=== PATIENT | female | born 1945 | race Two or more races ===

== ENCOUNTER 2023-04-04 03:01 | Inpatient (IN) | payer MEDICARE, BC ==
[~2023-04-04] VITALS: Ht 160 cm; Wt 63.5 kg
[2023-04-04] VITALS (15 sets, daily range): BP systolic 111–126; BP diastolic 67–80; TEMP 95–98.6; O2SAT 95–100
[2023-04-04] MEDS ORDERED: IBUPROFEN 400 MG TABLET ONE (03:22)
[2023-04-04] MEDS ORDERED: IBUPROFEN 400 MG TABLET PO ONE (03:30)
[2023-04-04] MEDS ORDERED: HYDROCODONE/APAP 5/325MG TABLET ONE ×2 (04:19→09:07)
[2023-04-04] MEDS ORDERED: HYDR-3980 PO (04:25)
[2023-04-04] MEDS ORDERED: HYDROCODONE/APAP 5/325MG TABLET PO ONE ×2 (04:30→09:30)
[2023-04-04] MEDS ORDERED: ONDANSETRON 4 MG TAB.RAPDIS ONE (05:23)
[2023-04-04] MEDS ORDERED: ONDANSETRON HCL/PF 4 MG/2 ML VIAL IVP ONE (05:30)
[2023-04-04] MEDS ORDERED: ONDANSETRON 4 MG TAB.RAPDIS SL ONE (05:30)
[2023-04-04 06:03] LABS: BASOPHILS % (AUTO) 0.1 % (0.0-2.0); HEMATOCRIT 39 % (33-45); HEMOGLOBIN 12.7 g/dL (11.5-14.8); LYMPHOCYTES # (AUTO) 0.3 K/uL (0.8-4.8); LYMPHOCYTES % (AUTO) 1.9 % (20.0-44.0); MEAN CORPUSCULAR HEMOGLOBIN 31 PG (26.0-33.0); MEAN CORPUSCULAR HGB CONC 33 g/dl (31.0-36.0); MEAN CORPUSCULAR VOLUME 95 fL (82-100); MONOCYTES # (AUTO) 0.6 K/uL (0.1-1.30); MONOCYTES % (AUTO) 4.9 % (2.0-12.0); NEUTROPHILS # (AUTO) 12.1 K/uL (1.8-8.9); NEUTROPHILS % (AUTO) 93.1 % (43.0-81.0); PLATELET COUNT (AUTO) 189 K/uL (150-450); RED BLOOD CELL COUNT(AUTO) 4.08 MIL/uL (4.0-5.2); RED CELL DISTRIBUTION WIDTH 15.3 % (11.5-15.0)
[2023-04-04 06:12] LABS: CALCIUM, SERUM 9.1 mg/dL (8.5-10.1); CARBON DIOXIDE 23 mmol/L (21-32); CHLORIDE 102 mmol/L (98-107); CREATININE 0.8 mg/dL (0.6-1.3); GLUCOSE 119 mg/dL (74-106); POTASSIUM 3.7 mmol/L (3.5-5.1); SODIUM SERUM 137 mmol/L (136-145); UREA NITROGEN, BLOOD 21 mg/dL (7-18)
[2023-04-04 06:14] LABS: INR 0.97 (0.91-1.10); PROTHROMBIN TIME 10.2 SECS (9.2-11.1)
[2023-04-04] MEDS ORDERED: MAGNESIUM HYDROXIDE 30 ML UDC PO PRN (07:30)
[2023-04-04] MEDS: PANTOPRAZOLE 40 MG TABLET.DR PO SCH (07:30)
[2023-04-04] MEDS ORDERED: HYDROCODONE/APAP 7.5/325MG 1 EACH TABLET PO PRN (07:30)
[2023-04-04] MEDS ORDERED: ACETAMINOPHEN 325 MG TABLET PO PRN (07:30)
[2023-04-04] MEDS ORDERED: ONDANSETRON HCL/PF 4 MG/2 ML VIAL IVP PRN (07:30)
[2023-04-04 08:33] LABS: ALBUMIN 3.7 g/dL (3.4-5.0); BILIRUBIN,DIRECT 0.1 mg/dL (0.0-0.2); BILIRUBIN,TOTAL 0.4 mg/dL (0.2-1.0); TOTAL PROTEIN, SERUM 7.3 g/dL (6.4-8.2)
[2023-04-04 08:58] LABS: THYROID STIMULATING HORMONE 1.213 uIU/mL (0.358-3.74)
[2023-04-04] MEDS: DOCUSATE SODIUM 100 MG CAPSULE PO SCH ×2 (09:00→18:01)
[2023-04-04] MEDS ORDERED: ERGO500093 PO (09:11)
[2023-04-04] MEDS ORDERED: DEXL30CA3 PO (09:11)
[2023-04-04] MEDS ORDERED: ESTR1PAT23 TP (09:11)
[2023-04-04] MEDS ORDERED: SIMV-46 PO (09:11)
[2023-04-04] MEDS: HYDROCODONE/APAP 5/325MG TABLET PO PRN ×2 (14:55→22:48)
[2023-04-04] MEDS: ENOXAPARIN SODIUM 40 MG/0.4 ML DISP.SYRIN SQ SCH (15:24)
[2023-04-05] VITALS (13 sets, daily range): BP systolic 106–157; BP diastolic 66–83; TEMP 97.7–98.4; O2SAT 91–100
[2023-04-05 04:49] LABS: BASOPHILS % (AUTO) 0.1 % (0.0-2.0); EOSINOPHILS % (AUTO) 0.2 % (0.0-6.0); HEMATOCRIT 37 % (33-45); LYMPHOCYTES # (AUTO) 0.4 K/uL (0.8-4.8); LYMPHOCYTES % (AUTO) 4.1 % (20.0-44.0); MEAN CORPUSCULAR HEMOGLOBIN 31 PG (26.0-33.0); MEAN CORPUSCULAR HGB CONC 33 g/dl (31.0-36.0); MEAN CORPUSCULAR VOLUME 94 fL (82-100); MONOCYTES # (AUTO) 0.6 K/uL (0.1-1.30); MONOCYTES % (AUTO) 6.5 % (2.0-12.0); NEUTROPHILS # (AUTO) 7.9 K/uL (1.8-8.9); NEUTROPHILS % (AUTO) 89.1 % (43.0-81.0); PLATELET COUNT (AUTO) 181 K/uL (150-450); RED BLOOD CELL COUNT(AUTO) 3.87 MIL/uL (4.0-5.2); RED CELL DISTRIBUTION WIDTH 15.6 % (11.5-15.0); WHITE BLOOD COUNT (AUTO) 8.9 K/uL (4.3-11.0)
[2023-04-05 05:33] LABS: ALANINE AMINOTRANSFERASE 41 U/L (12-78); ALBUMIN 3.3 g/dL (3.4-5.0); ALKALINE PHOSPHATASE 80 U/L (46-116); ASPARTATE AMINOTRANSFERASE 17 U/L (15-37); BILIRUBIN,TOTAL 0.9 mg/dL (0.2-1.0); CALCIUM, SERUM 8.9 mg/dL (8.5-10.1); CARBON DIOXIDE 24 mmol/L (21-32); CHLORIDE 104 mmol/L (98-107); CREATININE 0.5 mg/dL (0.6-1.3); GLUCOSE 118 mg/dL (74-106); MAGNESIUM 2.3 mg/dL (1.8-2.4); POTASSIUM 4.6 mmol/L (3.5-5.1); SODIUM SERUM 137 mmol/L (136-145); TOTAL PROTEIN, SERUM 6.8 g/dL (6.4-8.2); UREA NITROGEN, BLOOD 14 mg/dL (7-18)
[2023-04-05] MEDS: PANTOPRAZOLE 40 MG TABLET.DR PO SCH (06:22)
[2023-04-05] MEDS: DOCUSATE SODIUM 100 MG CAPSULE PO SCH ×2 (08:47→16:14)
[2023-04-05] MEDS: ENOXAPARIN SODIUM 40 MG/0.4 ML DISP.SYRIN SQ SCH (08:48)
[2023-04-05] MEDS: HYDROCODONE/APAP 5/325MG TABLET PO PRN ×5 (09:02→17:22)
[2023-04-06] MEDS: HYDROCODONE/APAP 5/325MG TABLET PO PRN ×6 (00:45→20:10)
[2023-04-06 04:00] VITALS: BP 131/77; TEMP 98.4; O2SAT 96
[2023-04-06] MEDS ORDERED: OXYBUTYNIN CHLORIDE 5 MG TABLET PO PRN (04:30)
[2023-04-06] MEDS: PANTOPRAZOLE 40 MG TABLET.DR PO SCH (07:52)
[2023-04-06 08:00] VITALS: BP 122/79; TEMP 98.1
[2023-04-06] MEDS: DOCUSATE SODIUM 100 MG CAPSULE PO SCH ×2 (09:12→16:13)
[2023-04-06] MEDS: ENOXAPARIN SODIUM 40 MG/0.4 ML DISP.SYRIN SQ SCH (09:13)
[2023-04-06] MEDS ORDERED: TRAMADOL HCL 50 MG TABLET PO PRN (14:00)
[2023-04-06] MEDS: LIDOCAINE 5% (PATCH) 1 EA PATCH TP SCH (14:38)
[2023-04-06 15:25] LABS: APPEARANCE,URINE CLEAR (CLEAR); BILIRUBIN,URINE NEGATIVE (NEGATIVE); BLOOD, URINE 1+ Ery/uL (NEGATIVE); COLOR,URINE YELLOW (YELLOW); KETONES,URINE NEGATIVE (NEGATIVE); LEUKOCYTE ESTERASE ,URINE NEGATIVE (NEGATIVE); NITRITE, URINE NEGATIVE (NEGATIVE); PROTEIN,URINE NEGATIVE (NEGATIVE); UGLUCOSE NEGATIVE (NEGATIVE); UROBILINOGEN,URINE 0.2 EU/dL (0.2)
[2023-04-06 16:00] VITALS: BP 116/72; TEMP 98.3; O2SAT 95
[2023-04-06 16:01] LABS: ADD URINE CULTURE NO; BACTERIA,URINE RARE /HPF (None Seen); WBC,URINE 0-2 /HPF (0-3)
[2023-04-06 16:02] LABS: MUCUS,URINE Few /LPF (None Seen)
[2023-04-06 20:00] VITALS: BP 127/78; TEMP 98.8; O2SAT 98
[2023-04-07] MEDS: HYDROCODONE/APAP 5/325MG TABLET PO PRN ×3 (01:27→12:46)
[2023-04-07 04:00] VITALS: BP 143/76; TEMP 98.8; O2SAT 95
[2023-04-07] MEDS: PANTOPRAZOLE 40 MG TABLET.DR PO SCH (07:35)
[2023-04-07] MEDS: DOCUSATE SODIUM 100 MG CAPSULE PO SCH (09:03)
[2023-04-07] MEDS: ENOXAPARIN SODIUM 40 MG/0.4 ML DISP.SYRIN SQ SCH (09:04)
[2023-04-07] MEDS ORDERED: BISACODYL SUPP (10 MG) 10 MG/SUPP.RECT SUPP.RECT RC PRN (11:00)
[2023-04-07] MEDS: LIDOCAINE 5% (PATCH) 1 EA PATCH TP SCH (13:34)
== END 2023-04-07 13:51 | DRG 964 ==
LOC: ER 03:03 → EDSEX 03:03 → ICU 09:15 → MEDSG1 04-05 10:16
DX: S22.42XA Multiple fractures of ribs, left side, initial encounter for closed fracture (principal); S32.402A Unspecified fracture of left acetabulum, initial encounter for closed fracture; S27.0XXA Traumatic pneumothorax, initial encounter; J98.11 Atelectasis; W01.0XXA Fall on same level from slipping, tripping and stumbling without subsequent striking against object, initial encounter; K21.9 Gastro-esophageal reflux disease without esophagitis; E78.5 Hyperlipidemia, unspecified; Y93.9 Activity, unspecified; Y92.009 Unspecified place in unspecified non-institutional (private) residence as the place of occurrence of the external cause
CPT/HCPCS: 36415; 71045-TC; 71100-TC; 71250-TC; 72192-TC; 73030-TC; 73502; 80048-TC; 80053-TC; 80061-TC; 80076-TC; 81001; 82607-TC; 83735-TC; 83880; 84100-TC; 84443-TC; 84484-TC; 85025-TC; 85730-TC; 87086-TC; 97112-TC; 97116-TC; 97530-TC; G0378; J1650; J2405; Q0162

== ENCOUNTER 2025-04-16 16:43 | Inpatient (IN) | payer MEDICARE, BC ==
[~2025-04-16] VITALS: Ht 160 cm; Wt 64.9 kg
[~2025-04-16 16:43] MED LIST: DEXL30CA3 PO; ERGO500093 PO; ESTR1PAT23 TD; SIMV-46 PO
[2025-04-16 17:07] LABS: PLATELET COUNT (AUTO) 195 K/uL (150-450); RED BLOOD CELL COUNT(AUTO) 4.35 MIL/uL (4.0-5.2); RED CELL DISTRIBUTION WIDTH 14.6 % (11.5-15.0); WHITE BLOOD COUNT (AUTO) 11.8 K/uL (4.3-11.0)
[2025-04-16] MEDS ORDERED: ONDANSETRON HCL/PF 4 MG/2 ML VIAL ONE ×2 (17:07→18:29)
[2025-04-16] MEDS: IV NS 0.9% 1,000 ML BAG IV ONE ×2 (17:10→18:33)
[2025-04-16] MEDS: ONDANSETRON HCL/PF 4 MG/2 ML VIAL IVP ONE ×2 (17:10→18:33)
[2025-04-16 17:17] LABS: CALCIUM, SERUM 8.9 mg/dL (8.5-10.1); CREATININE 0.6 mg/dL (0.6-1.3); SODIUM SERUM 135 mmol/L (136-145); UREA NITROGEN, BLOOD 29 mg/dL (7-18)
[2025-04-16 17:23] LABS: ASPARTATE AMINOTRANSFERASE 23 U/L (15-37); TOTAL PROTEIN, SERUM 7.3 g/dL (6.4-8.2)
[2025-04-16 20:00] VITALS: BP 108/65; TEMP 97.5; O2SAT 97
[2025-04-16] MEDS ORDERED: MAGNESIUM HYDROXIDE 30 ML UDC PO PRN (20:00)
[2025-04-16] MEDS ORDERED: ONDANSETRON HCL/PF 4 MG/2 ML VIAL IVP PRN (20:00)
[2025-04-16] MEDS ORDERED: MAG HYDROX/AL HYDROX/SIMETH 30 ML UDC PO PRN (20:00)
[2025-04-16] MEDS: IV NS 0.9% 1,000 ML IV SCH (20:16)
[2025-04-17 04:00] VITALS: BP 97/61; TEMP 97.5; O2SAT 96
[2025-04-17 07:36] LABS: PLATELET COUNT (AUTO) 170 K/uL (150-450); RED BLOOD CELL COUNT(AUTO) 3.74 MIL/uL (4.0-5.2); RED CELL DISTRIBUTION WIDTH 14.5 % (11.5-15.0); WHITE BLOOD COUNT (AUTO) 7.5 K/uL (4.3-11.0)
[2025-04-17 07:43] LABS: CALCIUM, SERUM 7.6 mg/dL (8.5-10.1); CREATININE 0.7 mg/dL (0.6-1.3); PHOSPHORUS 2.4 mg/dL (2.5-4.9); SODIUM SERUM 143.0 mmol/L (136-145); UREA NITROGEN, BLOOD 10.0 mg/dL (7-18)
[2025-04-17] MEDS ORDERED: ACETAMINOPHEN 650 MG/20.3 ML UDC PO PRN (09:30)
[2025-04-17] MEDS: ACETAMINOPHEN 325 MG TABLET PO PRN (09:53)
[2025-04-17] MEDS ORDERED: SIMVASTATIN 20 MG TABLET PO SCH (18:00)
== END 2025-04-17 12:08 | disposition home or self-care (01) | DRG 392 ==
LOC: ER 16:56 → MEDSG1 18:32
PROVIDERS: ATTEND Nurse Practitioner Family
DX: A05.9 Bacterial foodborne intoxication, unspecified (principal); E87.1 Hypo-osmolality and hyponatremia; K21.9 Gastro-esophageal reflux disease without esophagitis; Z90.710 Acquired absence of both cervix and uterus; E78.5 Hyperlipidemia, unspecified; D72.829 Elevated white blood cell count, unspecified; E86.0 Dehydration
CPT/HCPCS: 36415; 80048-TC; 80076-TC; 83690-TC; 83735-TC; 84100-TC; 85025-TC; 87081-TC; G0378; J2405; J7030